=== PATIENT | male | born 1985 | race Caucasian/White ===

== ENCOUNTER 2019-09-14 15:45 | Emergency (ER) | payer OTHER ==
[~2019-09-14] VITALS: Ht 182.9 cm; Wt 72.6 kg
[2019-09-14] MEDS ORDERED: IBUPROFEN 600 MG TABLET PO ONE (16:00)
[2019-09-14] MEDS ORDERED: IBUPROFEN 600 MG TABLET ONE (16:04)
[2019-09-14] MEDS ORDERED: AZITHROMYCIN 250 MG TABLET PO ONE (16:15)
[2019-09-14] MEDS ORDERED: AZITHROMYCIN 250 MG TABLET ONE (16:25)
[2019-09-14 16:45] VITALS: BP 100/79
--- NOTE | 2019-09-14 16:46 | NUR ---
Patient discharged to home in stable conditon. Written and verbal after care instructions given. Patient verbalizes understanding of instructions.
== END 2019-09-14 16:46 | disposition home or self-care (01) ==
LOC: ER 15:45
DX: J02.9 Acute pharyngitis, unspecified (principal); I10 Essential (primary) hypertension
CPT/HCPCS: A4663; Q0144

== ENCOUNTER 2019-11-22 22:32 | Emergency (ER) | payer OTHER ==
[~2019-11-22] VITALS: Ht 182.9 cm; Wt 73.0 kg
[~2019-11-22 22:32] MED LIST: BP MED
[2019-11-22] MEDS ORDERED: TDAP DIPH,PERTUSS,TET VAC/PF 0.5 ML DISP.SYRIN IM ONE ×2 (23:15→23:30)
--- NOTE | 2019-11-23 00:49 | NUR ---
Armboard applied per MD instruction. Educated patient on armboard use. Patient verbalized understanding.
== END 2019-11-23 01:10 | disposition home or self-care (01) ==
LOC: ER 22:33
DX: S61.512A Laceration without foreign body of left wrist, initial encounter (principal); W25.XXXA Contact with sharp glass, initial encounter; Y92.89 Other specified places as the place of occurrence of the external cause; I10 Essential (primary) hypertension
CPT/HCPCS: 73110; 90715; A4217; A4663